=== PATIENT | female | born 2005 | race Two or more races ===

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

== ENCOUNTER 2025-05-17 10:26 | Outpatient (CLI) | payer MEDICAID ==
[~2025-05-17 10:26] MED LIST changes: +ACET-1882 PO; +DOCU-265 PO; +HYDR5CRE3 PR; +IBUP-1455 PO
== END 2025-05-17 17:00 | disposition home or self-care (01) ==
LOC: LAB 10:26
PROVIDERS: ATTEND Obstetrics & Gynecology
DX: O03.9 Complete or unspecified spontaneous abortion without complication (principal)
CPT/HCPCS: 36415; 84144; 84702

== ENCOUNTER → 2025-06-12 | Outpatient (CLI) | payer MEDICAID ==
[2025-06-12 15:41] LABS: Hematocrit 41.9 % (36.0-46.0); Hemoglobin 14.3 g/dL (12.2-16.2); Mean Corpuscular Hemoglobin 30.5 pg (28.0-32.0); Mean Corpuscular Volume 89.3 fL (80.0-100.0); Nucleated Red Blood Cells % 0.0 %
[2025-06-14 02:07] LABS: Chlamydia Trachomatis, NAA Negative (Negative); Neisseria gonorrhoeae, NAA Negative (Negative)
== END | disposition home or self-care (01) ==
LOC: LAB 14:39
PROVIDERS: ATTEND Obstetrics & Gynecology
DX: Z34.90 Encounter for supervision of normal pregnancy, unspecified, unspecified trimester (principal); Z11.3 Encounter for screening for infections with a predominantly sexual mode of transmission; Z72.51 High risk heterosexual behavior
CPT/HCPCS: 36415; 83036; 84144; 84702; 85025; 86703; 86762; 86780; 86850; 86900; 86901; 87086; 87340